=== PATIENT | female | born 1960 | race Caucasian/White ===

== ENCOUNTER → 2017-08-10 | Outpatient (CLI) | payer OTHER ==
[~2017-08-10] MED LIST: ALBUTEROL0.83 MG/ML IH; LEVAQUIN 750MG750 M1 PO; NORCO 325 MG-51 TAB PO; SYNTHROID0.05 MG/TA PO; XARELTO15 MG PO; XARELTO20 MG PO
== END ==
LOC: COL.VAS 14:00
DX: I50.9 Heart failure, unspecified (principal); Z68.41 Body mass index [BMI] 40.0-44.9, adult; M79.662 Pain in left lower leg; M79.661 Pain in right lower leg; R60.9 Edema, unspecified

== ENCOUNTER → 2017-12-10 | Outpatient (CLI) | payer OTHER | LOC: COL.RAD 12:37 | DX: N85.8 Other specified noninflammatory disorders of uterus (principal); Z79.01 Long term (current) use of anticoagulants ==

== ENCOUNTER → 2020-07-12 | Outpatient (CLI) | payer OTHER | LOC: COL.RAD 08:18 | DX: M47.814 Spondylosis without myelopathy or radiculopathy, thoracic region (principal); M41.84 Other forms of scoliosis, thoracic region; R06.02 Shortness of breath; Z86.718 Personal history of other venous thrombosis and embolism | CPT/HCPCS: Q9967 ==